=== PATIENT | female | born 1960 | race Caucasian/White ===

== ENCOUNTER 2022-07-02 19:17 | Emergency (ER) | payer BC ==
[2022-07-02 19:29] VITALS: BP 119/75; PULSE 78; RESP 19; TEMP 98.1; BMI 27.4
== END 2022-07-02 20:34 | disposition home or self-care (01) ==
LOC: JER 19:17
DX: T18.128A Food in esophagus causing other injury, initial encounter (principal)
CPT/HCPCS: 70360-TC-FY; 71046-TC-FY; 99285-25